=== PATIENT | female | born 1980 | race Caucasian/White ===

== ENCOUNTER 2017-03-22 09:28 | Outpatient (CLI) | payer OTHER ==
[2017-03-22 12:40] VITALS: BP 104/58
[2017-03-22] MEDS ORDERED: BUPIVACAINE 0.5%-EPI 1:200000 PF 10 ML VIAL SUBQ ONE (13:01)
[2017-03-22] MEDS ORDERED: BUFFERED LIDOCAINE 10 ML SYRINGE IU ONE (13:01)
--- NOTE | 2017-03-22 14:59 | Ultrasound Report ---
ULTRASOUND-GUIDED RIGHT BREAST BIOPSY: 03/22/2017 CLINICAL INDICATION: A 6 mm nodule at the 9:30 position of the right breast. FINDINGS: Informed consent was obtained. Using standard aseptic technique, both 1% buffered lidocain e and Sensorcaine were injected into the right breast for local anesthesia. A small gabriela was made in the skin with a #11 blade. A 12-gauge Celero vacuum-assisted device was used to obtain three specimen s. A Celero marker was placed into the biopsy cavity under ultrasound guidance. The patient was taken to a separate mammography machine, and a two view digital mammogram was performed, documenting the may er in the expected location and no significant postbiopsy hematoma. The wound was dressed and ice applied. The patient was observed for approximately 15 minutes, then wa s discharged from [facility] in good condition following instructions on wound care and obtai chrissy biopsy results. The tissue was sent for histologic analysis. IMPRESSION: ULTRASOUND-GUIDED BIOPSY OF THE RIGHT BREAST. AN ADDENDUM WILL BE MADE TO THIS REPORT WHEN PATHOLOGY IS REVIEWED TO ESTABLISH CONCORDANCE. JOB #: [id number] EXT JOB #:[id number]
--- NOTE | 2017-03-26 13:50 | Mammography Report ---
REVISED: THIS REPORT WAS ORIGINALLY SIGNED ON 03/22/2017 @ 1509. ORDERS LINKED ON 03/26/2017. EXAM: [id number] /[facility] ([id number]) ULTRASOUND-GUIDED RIGHT BREAST BIOPSY: 03/22/2017 CLINICAL INDICATION: A 6 mm nodule at the 9:30 position of the right breast. FINDINGS: Informed consent was obtained. Using standard aseptic technique, both 1% buffered lidocaine and Sensorcaine were injected into the right breast for local anesthesia. A small gabriela was made in the skin with a #11 blade. A 12- gauge Celero vacuum-assisted device was used to obtain three specimens. A Celero marker was placed into the biopsy cavity under ultrasound guidance. The patient was taken to a separate mammography machine, and a two view digital mammogram was performed, documenting the marker in the expected location and no significant postbiopsy hematoma. The wound was dressed and ice applied. The patient was observed for approximately 15 minutes, then was discharged from [facility] in good condition following instructions on wound care and obtaining biopsy results. The tissue was sent for histologic analysis. IMPRESSION: ULTRASOUND-GUIDED BIOPSY OF THE RIGHT BREAST. AN ADDENDUM WILL BE MADE TO THIS REPORT WHEN PATHOLOGY IS REVIEWED TO ESTABLISH CONCORDANCE. JOB #: [id number] EXT JOB #: [id number] Principal Technical Writer: Reading Radiologist: Yinka King MD Releasing Radiologist: Yinka King MD Released Date Time: 03/22/17 1509 <Electronically signed by Yinka King MD> cc: RUPERT BOX MD ADDENDUM ADDENDUM: Procedure performed by Dr. Yinka King. Pathology reviewed by Dr. Karla Romo. Final pathology results are benign (fibrocystic changes including sclerosing adenosis and stromal fibrosis, negative for in situ and invasive malignancy). These results are concordant with imaging findings. RECOMMENDATION: Six-month followup ultrasound. NOTE: Clinical followup for any persistent palpable abnormalities. Benign imaging should not dissuade further evaluation of any clinically suspicious changes. The patient has been instructed to obtain biopsy results from the ordering provider. Addendum Principal Technical Writer: ISAAK Addendum Reading Radiologist: Yinka King MD Addendum Releasing Radiologist: Yinka King MD Addendum Released Date Time: 03/25/17 0816 [facility]
== END 2017-03-22 09:29 | disposition home or self-care (01) ==
LOC: DI 09:28
PROVIDERS: ATTEND Family Medicine
DX: N60.21 Fibroadenosis of right breast (principal); N60.31 Fibrosclerosis of right breast
CPT/HCPCS: 19083

== ENCOUNTER 2017-07-20 08:00 | Outpatient (CLI) | payer OTHER | END 2017-07-20 08:01 | disposition home or self-care (01) | LOC: LAB.R 08:00 | PROVIDERS: ATTEND Podiatrist | DX: L03.032 Cellulitis of left toe (principal) | CPT/HCPCS: 87070; 87077; 87205 ==

== ENCOUNTER 2017-07-28 09:00 | Outpatient (CLI) | payer OTHER | END 2017-07-28 23:59 | LOC: LAB.R 09:00 | PROVIDERS: ATTEND Podiatrist | DX: T81.4XXA Infection following a procedure, initial encounter (principal); L03.031 Cellulitis of right toe | CPT/HCPCS: 87070; 87205 ==

== ENCOUNTER 2017-08-11 14:27 | Observation (INO) | payer OTHER ==
--- NOTE | 2017-08-11 15:03 | ED Physician Documentation ---
History of Present Illness - Stated complaint Stated Complaint: LT LEG REDNESS/SWELLING - Chief complaint Chief Complaint: Wound - Additonal information Additional information: hx from pt 36 f denies preg LMP 3 weeks ago and neg HCG a week ago had a toenail fungal infection had 4 nails removed developed infection has been on numerous oral ab including augmentin bactrim doxy and keflex and infection has worsened, now extending off toe and pain extending into foot no fever Review of Systems Constitutional: denies: Fever : denies: Now EGA Skin: reports: Rash Musculoskeletal: reports: Extremity pain PD PAST MEDICAL HISTORY - Past Surgical History HEENT: Tonsil/Adenoidectomy - Present Medications Home Medications: Ambulatory Orders Medication Instructions Recorded Confirmed No Known Home Medications [No 08/11/17 08/11/17 Known Home Medications] - Allergies Allergies/Adverse Reactions: Allergies Allergy/AdvReac Type Severity Reaction Status Date / Time itraconazole Allergy Unknown Verified 08/11/17 14:35 PD ED PE NORMAL - Vitals Vital signs reviewed: Yes - Cardiac Cardiac: RRR - Respiratory Respiratory: No respiratory distress, Clear bilaterally - Derm Derm: Other (R great toe nail removed and crusted nail bed, erythena and tenderness to entire great toe and extending onto the foot but not streaking any further) - Neuro Neuro: Alert and oriented X 3 Results - Vitals Vitals: Vital Signs - 24 hr 08/11/17 14:35 Temperature 36.6 C Heart Rate 100 Respiratory 16 Rate Blood Pressure 147/82 H O2 Saturation 100 Oxygen O2 Source Room air - Labs Labs: Laboratory Tests 08/11/17 08/11/17 14:50 14:50 WBC 6.3 RBC 4.27 Hgb 12.4 Hct 36.7 L MCV 85.8 MCH 29.0 MCHC 33.8 RDW 14.0 Plt Count 225 MPV 7.6 L Neut # 4.3 Lymph # 1.6 Power # 0.3 Eos # 0.1 Baso # 0.1 Absolute Nucleated RBC 0.00 Nucleated RBC % 0.0 Sodium 135 Potassium 3.6 Chloride 104 Carbon Dioxide 23 Anion Gap 8.0 BUN 11 Creatinine 0.7 Estimated GFR (MDRD) 96 Glucose 100 Calcium 9.1 - Rads (name of study) foot Radiology: See rad report PD MEDICAL DECISION MAKING - ED course ED course: toe cellultiis now grwoing numerous unusual bacteria but not MRSA - considered setting up home health IV ab infusion but unable to reach any providers at [facility] otday - MANAGING COGNITIVE ENGINEER states no answer calling numerous diff lines based on 07/28 cultures either bactrim or levaquin would cover all strains tested for sensitivities - levaquin is black box so gave IV bactrim Departure - Departure Disposition: ED Place in Observation Clinical Impression: Cellulitis Qualifiers: Site of cellulitis: extremity Site of cellulitis of extremity: lower extremity Laterality: left Qualified Code(s): L03.116 - Cellulitis of left lower limb Condition: Good Discharge Date/Time: 08/11/17 17:02
[2017-08-11 15:05] LABS: BASOPHILS # (AUTO) 0.1 10^3/uL (0.0-0.1); BASOPHILS % (AUTO) 1.1 %; EOSINOPHILS # (AUTO) 0.1 10^3/uL (0.0-0.7); EOSINOPHILS % (AUTO) 0.9 %; HGB - HEMOGLOBIN 12.4 g/dL (12.0-16.0); LYMPHOCYTES # (AUTO) 1.6 10^3/uL (1.5-3.5); LYMPHOCYTES % (AUTO) 24.9 %; MEAN CORPUSCULAR HGB CONC 33.8 g/dL (32.0-36.0); MEAN CORPUSCULAR VOLUME 85.8 fL (81.0-99.0); MEAN PLATELET VOLUME 7.6 fL (7.9-10.8); MONOCYTES # (AUTO) 0.3 10^3/uL (0.0-1.0); MONOCYTES % (AUTO) 5.3 %; NEUTROPHILS # (AUTO) 4.3 10^3/uL (1.5-6.6); NEUTROPHILS % (AUTO) 67.8 %; PLT - PLATELET COUNT 225 10^3/uL (130-450); RED BLOOD COUNT 4.27 10^6/uL (4.20-5.40); WHITE BLOOD COUNT 6.3 x10^3/uL (4.8-10.8)
[2017-08-11 15:09] LABS: CALCIUM 9.1 mg/dL (8.5-10.3); CREATININE 0.7 mg/dL (0.4-1.0)
[2017-08-11] MEDS ORDERED: VANCOMYCIN INJ 1 GM in SODIUM CHLORIDE 0.9% 250 ML IV STA (15:19)
[2017-08-11] MEDS ORDERED: PIPERACILLIN/TAZOBACTAM 3.375 GM in SODIUM CHLORIDE 0.9% MINIBAG 100 ML IV STA (15:19)
[2017-08-11] MEDS ORDERED: SMX/TMP 800MG/160MG 10ML 20 ML in DEXTROSE 5% 500 ML IV ONE (15:24)
--- NOTE | 2017-08-11 15:47 | XRAY Report ---
EXAM: TOE INFECTION. TOE RADIOGRAPHY EXAM DATE: 08/11/2017 03:32 PM. CLINICAL HISTORY: Infection wont clear eval osteo. COMPARISON: None. TECHNIQUE: 3 views. FINDINGS: Bones: No fracture or focal bony lesion. Joints: No evidence of dislocation. Soft Tissues: There is linear opacity suggestive of heterotopic ossification within the dorsal soft t issues of the distal first digit. IMPRESSION: 1. No fracture or dislocation. 2. Linear opacity within the dorsal soft tissues of the distal first digit is suggestive of heterotop ic ossification. [facility] Referring Provider Line: [phone] SITE ID: [id number]
[2017-08-11] MEDS ORDERED: ZOLPIDEM 5 MG TABLET PO PRN (16:36)
[2017-08-11] MEDS ORDERED: PROCHLORPERAZINE 10 MG/2 ML VIAL IVP PRN (16:36)
[2017-08-11] MEDS ORDERED: SODIUM CHLORIDE FLUSH 0.9% 10 ML SYRINGE IVP PRN (16:36)
[2017-08-11] MEDS ORDERED: HYDROcod/ACETAM 5/325 MG TABLET PO PRN (16:36)
[2017-08-11] MEDS ORDERED: SMX/TMP 800MG/160MG 10ML 20 ML in DEXTROSE 5% 500 ML IV SCH (17:00)
[2017-08-11] MEDS ORDERED: levoFLOXacin 750 MG/150 ML 750 MG/150 ML BAG IV SCH (18:00)
[2017-08-11] MEDS: IBUPROFEN 600 MG TABLET PO PRN (18:50)
[2017-08-11] MEDS: CIPROFLOXACIN 400 MG/200 ML 200 ML IV SCH (18:51)
[2017-08-11] MEDS: SODIUM CHLORIDE FLUSH 0.9% 10 ML SYRINGE IVP SCH (18:52)
[2017-08-12] MEDS: IBUPROFEN 600 MG TABLET PO PRN ×2 (01:37→07:44)
[2017-08-12 05:36] LABS: BASOPHILS # (AUTO) 0.1 10^3/uL (0.0-0.1); BASOPHILS % (AUTO) 0.9 %; EOSINOPHILS # (AUTO) 0.1 10^3/uL (0.0-0.7); EOSINOPHILS % (AUTO) 1.5 %; HGB - HEMOGLOBIN 11.8 g/dL (12.0-16.0); LYMPHOCYTES # (AUTO) 1.9 10^3/uL (1.5-3.5); LYMPHOCYTES % (AUTO) 30.7 %; MEAN CORPUSCULAR HEMOGLOBIN 28.6 pg (27.0-31.0); MEAN CORPUSCULAR VOLUME 86.6 fL (81.0-99.0); MEAN PLATELET VOLUME 7.3 fL (7.9-10.8); MONOCYTES # (AUTO) 0.4 10^3/uL (0.0-1.0); MONOCYTES % (AUTO) 6.1 %; NEUTROPHILS # (AUTO) 3.7 10^3/uL (1.5-6.6); NEUTROPHILS % (AUTO) 60.8 %; PLT - PLATELET COUNT 213 10^3/uL (130-450); RED BLOOD COUNT 4.14 10^6/uL (4.20-5.40); RED CELL DISTRIBUTION WIDTH 14.1 % (12.0-15.0); WHITE BLOOD COUNT 6.1 x10^3/uL (4.8-10.8)
[2017-08-12] MEDS: CIPROFLOXACIN 400 MG/200 ML 200 ML IV SCH (06:07)
[2017-08-12] MEDS: SODIUM CHLORIDE FLUSH 0.9% 10 ML SYRINGE IVP SCH (06:07)
[2017-08-12] MEDS ORDERED: FAMOTIDINE 20 MG TABLET PO SCH (09:00)
[2017-08-12] MEDS ORDERED: POLYETHYLENE GLYCOL 3350 17 GM PACKET PO SCH (09:00)
[2017-08-12] MEDS ORDERED: ENOXAPARIN 40 MG/0.4 ML SYRINGE SUBQ SCH (09:00)
--- NOTE | 2017-08-12 10:56 | HISTORY & PHYSICAL EXAMINATION ---
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 She has a history of a severe sprain to her left ankle for which she did need some intervention. She otherwise has a negati ve past medical history. The patient had a toe fungus that was treated by a powder monkey by removal of 4 toenails. These subseq uently got infected and she was started on empiric Augmentin, which she took for one week with no improvemen t. She then had cultures performed and her antibiotic was changed empirically to doxycycline, which she took for 3 days. The cultures showed that the bacteria were not sensitive to doxycycline, so she was changed to Keflex plus Bactrim, which she took for 3 days. There was another set of cultures done and the most recent bacteria that are grown are Kocuria kristinae, pantoea species, Stenotrophomonas maltophilia. The sensitivit ies to these bacteria have also been done, including their MICs. She was seen by both her powder monkey and in [facility] who noted that there was now spread of the infection up into her foot, and she was advised to come he re for IV antibiotics for failing oral antibiotics. She rates the pain in this area at about a 5/10 and states that Extra Strength Tylenol does relieve her symptoms that she takes at home. MEDICATIONS: Medications at home are only 1. The new Bactrim with Keflex 2. Tylenol p.r.n. ALLERGIES: ITRACONAZOLE. SOCIAL HISTORY: She is a nonsmoker, drinks social alcohol, uses no illicit drugs. Works as a nurse. FAMILY HISTORY: No inherited diseases. REVIEW OF SYSTEMS: There has been no fever through this course or chills. A comprehensive review of systems was performed and is negative, except for what is described above. PHYSICAL EXAMINATION: VITAL SIGNS: Blood pressure 128/80, heart rate 91, in sinus rhythm, afebrile, room air saturation 10 0%. HEENT: Unremarkable. NECK: No JVD or carotid bruits. LUNGS: Clear. HEART: Heart sounds normal. No murmur. ABDOMEN: Soft. Positive bowel sounds. EXTREMITIES: No clubbing, cyanosis or edema. The first 2 toes of both feet have very short toenails that are starting to grow in, and at the distal aspect of all 4, there is ecchymosis and brownish-red discolor ation. The left great toe is bandaged and has suppurative discharge. There is redness extending from all 4 of these toes up the anterior aspect of the foot, going intermediate up with no tenderness to touch. NEUROLOGIC: Grossly intact. LABORATORY DATA: Normal BMP. White blood count 6.3 with a normal differential, normal platelet count . A toe x-ray was done that showed no fracture or dislocation. Linear opacity within the dorsal soft ti ssues of the distal first digit is suggestive of heterotopic ossification. IMPRESSION/DIAGNOSES: Toe and foot cellulitis with multiple bacterial organisms growing on culture. Lack of response to oral antibiotics. PLAN: I have reviewed the MICs and sensitivities with the hospital pharmacist, and the choices to us e are either IV Bactrim, IV Levaquin, or IV Cipro, and IV Cipro will be dosed. The patient should have dec ision made regarding continued IV antibiotic treatment for a 7-10 day course or changed to p.o. antibiotics . This will depend on cultures that will be redone of the draining toe, taken before the initiation of Cipro . The patient is expected to be discharged or transferred to another facility within 96 hours: Yes. CODE STATUS: FULL CODE. DVT prophylaxis: Lovenox. TD: 08/11/2017 20:02
[2017-08-12 11:37] VITALS: BP 112/68
--- NOTE | 2017-08-12 11:45 | Discharge Plan ---
Discharge Plan Disposition: Home, Self Care Condition: Fair Prescriptions: Ciprofloxacin HCl [Cipro] 500 mg PO BID #14 tablet Diet: Regular Activity Restrictions: Activity as Tolerated (Avoid running or strenuous exercise x 1 week) Shower Restrictions: Yes (Wrap infected foot when showering) Weight Bearing: Full Weight Additional Instructions or Follow Up instructions: You presented with infection of your foot and were given a dose of antibiotic which seems to have helped. You will go home with oral ciprofloxacin for 7 days. You will need to follow up with your PCP and Progressive Care Manager after you complete treatment. No Smoking: If you smoke, Please STOP! Call for help. Follow-up with: RUPERT BOX [Primary Care Provider] -
--- NOTE | 2017-08-12 11:52 | DISCHARGE SUMMARY ---
Discharge Summary Admit Date: 08/11/17 Discharge Date: 08/12/17 Discharging Provider: Demarco Cheng MD Primary Care Provider: Austin Sierra MD Code Status: Attempt Resuscitation Condition at Discharge: Good Discharge Disposition: Home, Self Care - DIAGNOSES Admission Diagnoses: 1. Cellulitis Discharge Diagnoses with Status of Each Condition: 1. Cellulitis - HPI History of Present Illness: Patient is a 36-year-old female with no significant past medical history who has been dealing with fungal infection of her toe for the last year. She stated that she first developed the fungal infection after trauma to her toe when she was hiking. She then developed onychomycosis of 4 of her toenails on her left foot. She states that that was initially treated with an antifungal and then later with chemical treatment of her toes. About 3 weeks ago she began to develop drainage out of her big toe on her left foot. This was cultured and found to be staph she was started on antibiotics. She states that she has been on 4 different antibiotics including Bactrim, Keflex, Augmentin and amoxicillin. Despite the antibiotic treatment she continues to have drainage from the foot and was developing worsening erythema of the foot. She came into the emergency department and was placed on IV ciprofloxacin and admitted to the hospital. - HOSPITAL COURSE Hospital Course: The patient had significant improvement over one night in the hospital with IV ciprofloxacin. Given that IV ciprofloxacin has a same bioavailability as oral ciprofloxacin the patient was placed on ciprofloxacin p.o. to be taken as an outpatient. The patient will receive 7 days of p.o. antibiotics. We did go over with the patient the risks of Achilles tendon rupture with fluoroquinolones. Given that the ciprofloxacin covers bacteria that she grew on previous cultures of the foot we felt that this was the best choice. Also given that she had significant improvement with just 2 doses the patient felt comfortable continuing ciprofloxacin to treat her cellulitis. The patient was told to follow-up with her primary care physician and dampproofer once she has completed treatment. She will continue taking probiotic at home and NSAIDs for pain. - ALLERGIES Allergies/Adverse Reactions: Allergies Allergy/AdvReac Type Severity Reaction Status Date / Time itraconazole Allergy Unknown Verified 08/11/17 14:35 - MEDICATIONS Home Medications: Ambulatory Orders Medication Instructions Recorded Confirmed Ciprofloxacin HCl [Cipro] 500 mg PO BID #14 tablet 08/12/17 - PHYSICAL EXAM AT DISCHARGE General Appearance: positive: No acute distress, Alert Eyes Bilateral: positive: Normal inspection, PERRL, EOMI, No lid inflammation, Conjunctivae nml, No scleral icterus ENT: positive: ENT inspection nml, Pharynx nml, No signs of dehydration. negative: Purulent nasal drainage, Pharyngeal erythema, Oral lesions Neck: positive: Nml inspection, Thyroid nml, No JVD, Trachea midline Respiratory: positive: Chest non-tender, No respiratory distress, Breath sounds nml. negative: Wheezes, Rales, Rhonchi Cardiovascular: positive: Regular rate & rhythm, No murmur, No gallop Peripheral Pulses: positive: 2+ Abdomen: positive: Non-tender, No organomegaly, Nml bowel sounds, No distention. negative: Guarding, Rebound, Hepatomegaly Back: positive: Nml inspection. negative: CVA tenderness (R), CVA tenderness (L ) Skin: positive: Other (Left foot erythema around 4 toes. Mild drainage from the left big toe. Mild erythema on the foot.) Extremities: positive: Non-tender, Full ROM, No pedal edema. negative: Joint swelling Neurologic/Psychiatric: positive: Oriented x3, CN's nml (2-12), Motor nml, Sensation nml, Mood/affect nml - LABS Result Diagrams: 08/12/17 05:24 08/11/17 14:50 - DIAGNOSTIC IMAGING Diagnostic Imaging Results: Final report reviewed Diagnostic Imaging Results Comments: X-ray left foot Impression: 1. No fracture dislocation 2. Annular opacity within the dorsal soft tissue of the distal first digit is suggestive of hypertrophic ossification - FOLLOW UP Follow Up: Patient will follow up with her primary care physician and dampproofer when she is completed 7 days of oral antibiotics for treatment of cellulitis of her left foot. - TIME SPENT Time Spent in Discharge (Minutes): 35 (FAX TO PCP)
== END 2017-08-12 12:36 | disposition home or self-care (01) ==
LOC: ED 14:27 → OBS 16:36
PROVIDERS: ADMIT Internal Medicine; ATTEND Internal Medicine
DX: L03.032 Cellulitis of left toe (principal); L03.116 Cellulitis of left lower limb; B95.8 Unspecified staphylococcus as the cause of diseases classified elsewhere; B96.89 Other specified bacterial agents as the cause of diseases classified elsewhere; B35.1 Tinea unguium; Z16.29 Resistance to other single specified antibiotic
CPT/HCPCS: 36415; 73660; 80048; 85025; 87070; 87205; 96365; 96366; 99283; A9270; G0378

== ENCOUNTER 2017-08-14 07:10 | Inpatient (IN) | payer OTHER ==
[2017-08-14] MEDS ORDERED: CIPROFLOXACIN 400 MG/200 ML 200 ML IV ONE (08:20)
--- NOTE | 2017-08-14 08:24 | ED Physician Documentation ---
History of Present Illness - Stated complaint Stated Complaint: LEFT TOE PX - Chief complaint Chief Complaint: Ext Problem - History obtained from History obtained from: Patient - History of Present Illness Timing: How many weeks ago (3) - Additonal information Additional information: 36-year-old female has had her right and left great toenails removed for onychomycoses and she has developed an infection in the bed of the right toenail that has been resistant to multiple courses of oral antibiotic. She was placed in the hospital and within 1 day of beginning intravenous ciprofloxacin patient had a marked recovery of her symptoms. She had cellulitis over the dorsum of the foot this is all completely resolved. She went home took 3 doses of her oral Cipro over the last 2 days and she has had recurrence of her symptoms, they are not as bad as when she was admitted into the hospital. She has erythema and pain to the dorsum of the right great toe. This all started with toes that were injured from hiking and developed some dark color to the toes about 2 years ago. She subsequently developed onchomycosis and this was not amenable to anti-fungals and she requires nail removal. Review of Systems Constitutional: reports: Myalgias. denies: Fever, Chills Eyes: denies: Decreased vision Ears: denies: Ear pain Nose: denies: Congestion Throat: denies: Dental pain / toothache Respiratory: denies: Cough GI: denies: Vomiting Skin: denies: Rash Musculoskeletal: reports: Extremity pain. denies: Neck pain, Back pain Neurologic: denies: Generalized weakness, Focal weakness, Numbness PD PAST MEDICAL HISTORY - Past Medical History Past Medical History: Yes Cardiovascular: None Respiratory: None Neuro: None Endocrine/Autoimmune: None GI: None : Kidney stones HEENT: None Psych: None Musculoskeletal: None Derm: None - Past Surgical History Past Surgical History: Yes HEENT: Tonsil/Adenoidectomy - Present Medications Home Medications: Ambulatory Orders Medication Instructions Recorded Confirmed Ciprofloxacin HCl [Cipro] 500 mg PO BID #14 tablet 08/12/17 08/14/17 - Allergies Allergies/Adverse Reactions: Allergies Allergy/AdvReac Type Severity Reaction Status Date / Time itraconazole Allergy Unknown Verified 08/11/17 14:35 - Social History Does the pt smoke?: No Smoking Status: Never smoker Does the pt drink ETOH?: No Does the pt have substance abuse?: No - Immunizations Immunizations are current?: Yes - POLST Patient has POLST: No PD ED PE NORMAL - Vitals Vital signs reviewed: Yes (normal ) - General General: Alert and oriented X 3, No acute distress, Well developed/nourished - HEENT HEENT: Atraumatic, PERRL, EOMI - Cardiac Cardiac: RRR - Respiratory Respiratory: No respiratory distress - Derm Derm: Normal color, Warm and dry, No rash - Extremities Extremities: No deformity, No edema, Other (There is mild erythema to the dorsum of the left great toe distally. There is tenderness but no drainage and no deformity. The nails to the 1st and 2nd toes have been removed previously and there is no new nail growth. ) Results - Vitals Vitals: Vital Signs - 24 hr 08/14/17 08/14/17 08/14/17 07:14 10:46 10:51 Temperature 36.6 C 36.8 C Heart Rate 97 98 93 Respiratory 18 16 12 Rate Blood Pressure 119/74 103/65 105/66 O2 Saturation 100 100 100 Oxygen O2 Source Room air - Labs Labs: Laboratory Tests 08/14/17 08/14/17 08/14/17 08:40 08:40 08:40 WBC 6.1 RBC 4.60 Hgb 13.2 Hct 39.4 MCV 85.7 MCH 28.8 MCHC 33.6 RDW 13.7 Plt Count 239 MPV 7.4 L Neut # 4.0 Lymph # 1.7 Elmore # 0.3 Eos # 0.1 Baso # 0.1 Absolute Nucleated RBC 0.00 Nucleated RBC % 0.0 ESR 5 Sodium 137 Potassium 3.7 Chloride 104 Carbon Dioxide 24 Anion Gap 9.0 BUN 12 Creatinine 0.7 Estimated GFR (MDRD) 96 Glucose 93 Calcium 9.1 Total Bilirubin 0.4 AST 24 ALT 17 Alkaline Phosphatase 43 C-Reactive Protein < 1.0 Total Protein 7.6 Albumin 4.5 Globulin 3.1 Albumin/Globulin Ratio 1.5 Lipase 28 PD MEDICAL DECISION MAKING - ED course Complexity details: reviewed old records, reviewed results, re-evaluated patient , considered differential, d/w patient, d/w family, d/w wine consultant (Dr. Cheng) ED course: 36-year-old female with a history ofInjury to the toes has developed a resistant infection. She had some improvement with intravenous Cipro while in the hospital and on oral Cipro this is failed. She is return to the emergency department with increasing symptoms. She has normal white blood cell count and electrolytes and her exam is not remarkable. She has been fighting this infection for 3 weeks with multiple courses of antibiotic. She has had some initial improvement 3 times and followed by worsening. Her tree pruner Steffi Martinez was consulted by telephone and recommended continued IV antibiotic. She has been frustrated with the multiple courses failing as outpatient. Dr. Cheng is consulted in the case and will admit the patient for failed outpatient management. Departure - Departure Disposition: ED Place in Observation Clinical Impression: Cellulitis Qualifiers: Site of cellulitis: extremity Site of cellulitis of extremity: toe Laterality: right Qualified Code(s): L03.031 - Cellulitis of right toe Condition: Stable Follow-Up: RUPERT BOX [Primary Care Provider] - Prescriptions: Clindamycin HCl [Clindamycin 300MG CAP] 300 mg PO QID #28 capsule
[2017-08-14 08:49] LABS: BASOPHILS # (AUTO) 0.1 10^3/uL (0.0-0.1); BASOPHILS % (AUTO) 0.9 %; EOSINOPHILS # (AUTO) 0.1 10^3/uL (0.0-0.7); EOSINOPHILS % (AUTO) 1.1 %; HGB - HEMOGLOBIN 13.2 g/dL (12.0-16.0); LYMPHOCYTES # (AUTO) 1.7 10^3/uL (1.5-3.5); MEAN CORPUSCULAR HEMOGLOBIN 28.8 pg (27.0-31.0); MEAN CORPUSCULAR HGB CONC 33.6 g/dL (32.0-36.0); MEAN CORPUSCULAR VOLUME 85.7 fL (81.0-99.0); MEAN PLATELET VOLUME 7.4 fL (7.9-10.8); MONOCYTES # (AUTO) 0.3 10^3/uL (0.0-1.0); MONOCYTES % (AUTO) 4.5 %; NEUTROPHILS % (AUTO) 65.5 %; PLT - PLATELET COUNT 239 10^3/uL (130-450); RED CELL DISTRIBUTION WIDTH 13.7 % (12.0-15.0); WHITE BLOOD COUNT 6.1 x10^3/uL (4.8-10.8)
[2017-08-14 09:05] LABS: ALBUMIN 4.5 g/dL (3.2-5.5); ALBUMIN/GLOBULIN RATIO 1.5 (1.0-2.2); ALKALINE PHOSPHATASE 43 IU/L (42-121); ALT ALANINE AMINOTRANSFERASE 17 IU/L (10-60); AST ASPARTATE AMINOTRANSFERASE 24 IU/L (10-42); BILIRUBIN,TOTAL 0.4 mg/dL (0.2-1.0); BUN - BLOOD UREA NITROGEN 12 mg/dL (6-20); CALCIUM 9.1 mg/dL (8.5-10.3); CARBON DIOXIDE - CO2 24 mmol/L (21-32); CHLORIDE 104 mmol/L (101-111); CREATININE 0.7 mg/dL (0.4-1.0); GFR - MDRD 96 (>89); GLUCOSE 93 mg/dL (70-100); LIPASE 28 U/L (22-51); SODIUM 137 mmol/L (135-145); TOTAL PROTEIN 7.6 g/dL (6.7-8.2)
[2017-08-14 09:30] LABS: CRP - C-REACTIVE PROTEIN < 1.0 mg/dL (0-1.0)
[2017-08-14] MEDS ORDERED: ZOLPIDEM 5 MG TABLET PO PRN (11:40)
[2017-08-14] MEDS ORDERED: oxyCODONE 5 MG TABLET PO PRN (11:40)
[2017-08-14] MEDS ORDERED: ONDANSETRON 4 MG/2 ML VIAL IVP PRN (11:40)
[2017-08-14] MEDS ORDERED: PROCHLORPERAZINE 10 MG/2 ML VIAL IVP PRN (11:40)
[2017-08-14] MEDS ORDERED: VANCOMYCIN PER PHARMACY 1 GM in SODIUM CHLORIDE 0.9% 250 ML IV SCH (12:00)
[2017-08-14] MEDS ORDERED: cefTRIAXone 1 GM in SODIUM CHLORIDE 0.9% MINIBAG 100 ML IV SCH (13:00)
[2017-08-14] MEDS ORDERED: SODIUM CHLORIDE 0.9% 250 ML IV ONE (13:43)
[2017-08-14] MEDS: SODIUM CHLORIDE FLUSH 0.9% 10 ML SYRINGE IVP SCH ×2 (13:47→19:01)
[2017-08-14] MEDS ORDERED: VANCOMYCIN 1.5 GM/NS 500 ML 1.5 GM/500 ML BAG IV ONE (14:00)
--- NOTE | 2017-08-14 16:10 | ED Physician Documentation ---
ED Addendum - Addendum Addendum: 08/14/17 16:09 unscheduled return visit chart accessed for follow up and educational purposes
[2017-08-14] MEDS: SACCHAROMYCES BOULARDII 250 MG CAPSULE PO SCH (16:15)
[2017-08-14] MEDS: ACETAMINOPHEN 325 MG TABLET PO PRN (16:16)
--- NOTE | 2017-08-14 17:39 | HISTORY & PHYSICAL EXAMINATION ---
Chief Complaint - Chief Complaint Chief Complaint: Left foot erythema and drainage History of Present Illness - Admitted From Admitted From:: Emergency department - History Obtained From Records Reviewed: Yes History obtained from: Patient Exam Limitations: None - History of Present Illness HPI Comment/Other: Patient is a healthy young 36-year-old female who was just recently hospitalized here at [facility] for a cellulitis of her left foot. She has been dealing with issues to her left foot now for nearly 2 years. She states that she initially had an injury to her left big toe while she was hiking. She states from that injury she developed a fungal infection of 4 of her toenails. She had that treated with antifungal for 6 months which seemed to resolve the infection however she had recurrence of the fungal infection and was placed on another antifungal to which she had a reaction and had to stop. The patient was then referred to a communications technician who removed the infected nails and this seemed to resolve her fungal infection. The patient however then developed drainage from her left big toe and developed cellulitis of the left foot. The patient has since been on multiple antibiotics including Augmentin which she took for 1 week but she had no improvement with. Doxycycline which she took for 3 days but but then was changed over to Keflex and Bactrim due to her culture sensitivity. The patient still had no improvement. Her cultures from her left foot have grown multiple different organisms including kocuria jalen, pantoea species, stenotromonas maltophilia. The patient has been seen by both a communications technician and an quality control lab tech who have noted that her infection who noted last week that her infection spread up into her foot and advised her to go to the emergency room for IV antibiotics. The patient was placed on IV ciprofloxacin and seemed to have a very good response over 24 hours. Given that ciprofloxacin has the same bioavailability whether taken IV or p.o. the patient was sent home on p.o. ciprofloxacin however over the last couple of days she has noticed increased drainage from the big toe on her left foot and increasing erythema in both her first and second toe. She also states that she is felt warm and had checked her temperature which was up to 99.1 which she states is high for her. She was concerned that the infection was beginning to spread again and therefore came back to the emergency department today. The patient denies any headaches, blurred vision, runny nose, sore throat, nasal congestion, difficulty swallowing, neck pain, chest pain, shortness of air , orthopnea, PND, abdominal pain, nausea, vomiting, diarrhea, constipation, back pain, joint pain, neck stiffness, recent unintentional weight loss, changes in her appetite or any focal neurologic deficits. On presentation to the emergency department the patient was afebrile she was slightly tachycardic with heart rate of 97 blood pressure was stable and she was not in any respiratory distress. The patient's lab work was all within normal limits including a C-reactive protein of less than 1 and an ESR of 5. The patient had had undergone imaging of her left foot during the previous admission which had shown linear opacity within the dorsal soft tissue of the distal first digit suggestive of hypertrophic ossification but there was no evidence of osteo-. Imaging was not repeated in the ER at this time. Given that the patient was not responding well to the oral antibiotics she was admitted again to the medical trivedi for IV antibiotics. History - Past Medical History Cardiovascular: reports: None, Murmur Respiratory: reports: None Neuro: reports: None Endocrine/Autoimmune: reports: None GI: reports: None : reports: Kidney stones HEENT: reports: None Psych: reports: None Musculoskeletal: reports: None Derm: reports: None MRSA Hx?: No Other Past Medical History: resolved heart murmur, fibrocystic breast disease - Past Surgical History HEENT: reports: Tonsil/Adenoidectomy - Family & Social History Family History: Mother: Cancer (Breast cancer), Diabetes, Type 2, Father: Diabetes, Type 2, Sister: Cancer, Other family: CAD (Maternal grandmother) Family History Comment/Other: Mom has Deanna's thyroiditis Living arrangement: At home Living Situation: With family Social History Notes: The patient is originally from [place], [place] and is a graduate of the [employer] where she did a degree in microbiology and 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 She is to a gentleman from the [employer] and was recently living in [place], [place] but moved to [facility] just 6 months ago. 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 She has never smoked she rarely drinks alcohol and she denies any illicit drug use. - POLST Patient has POLST: No POLST Status: Full Code Meds/Allgy - Home Medications Home Medications: Ambulatory Orders Medication Instructions Recorded Confirmed Ciprofloxacin HCl [Cipro] 500 mg PO BID #14 tablet 08/12/17 08/14/17 - Allergies Allergies/Adverse Reactions: Allergies Allergy/AdvReac Type Severity Reaction Status Date / Time itraconazole Allergy Unknown Verified 08/11/17 14:35 Review of Systems - Other Findings Other Findings: A comprehensive review of systems was performed the pertinent positives and negatives are stated above in the HPI and the remainder of the review of systems is negative. Exam - Vital Signs Reviewed Vital Signs: Yes Vital Signs: Vital Signs x48h Temp Pulse Resp BP Pulse Ox 08/14/17 16:04 36.7 C 95 18 113/65 100 08/14/17 12:16 36.9 C 91 18 115/68 100 - Physical Exam General Appearance: positive: No acute distress, Alert Eyes Bilateral: positive: Normal inspection, PERRL, EOMI, No lid inflammation, Conjunctivae nml, No scleral icterus ENT: positive: ENT inspection nml, Pharynx nml, No signs of dehydration. negative: Purulent nasal drainage, Pharyngeal erythema, Oral lesions Neck: positive: Nml inspection, Thyroid nml, No JVD, Trachea midline. negative : Thyromegaly, Lymphadenopathy (R), Lymphadenopathy (L) Respiratory: positive: Chest non-tender, No respiratory distress, Breath sounds nml. negative: Wheezes, Rales, Rhonchi Cardiovascular: positive: Regular rate & rhythm, No murmur, No gallop Peripheral Pulses: positive: 2+ Abdomen: positive: Non-tender, No organomegaly, Nml bowel sounds, No distention. negative: Guarding, Rebound, Hepatomegaly Back: positive: Nml inspection. negative: CVA tenderness (R), CVA tenderness (L ) Skin: positive: Other (Patient has erythema and swelling of her first and second left toe. There is some mild drainage from the left big toe. There appears to be a small blister on the surface of the anterior aspect of the dorsal aspect of the greater left toe. There is warmth to touch on her first and second toe but no tenderness.) Extremities: positive: Non-tender, Full ROM, Nml appearance, No pedal edema Neurologic/Psychiatric: positive: Oriented x3, CN's nml (2-12), Motor nml, Sensation nml, Mood/affect nml Conclusion/Plan - Problem List (1) Cellulitis of left toe Conclusion/Plan: The patient has had persistent cellulitis of her left foot specifically the first and second toe for over a month. Prior to that she had issues with onychomycosis of her toes on the left foot which persisted for over a year. The patient has had multiple wound cultures that have grown out multiple different organisms. The patient has been on numerous antibiotics but does not appear to respond for any prolonged period of time. Most recently the patient was hospitalized and placed on IV Cipro and seemed to respond but when switched to oral Cipro the patient's infection has worsened and cellulitis has returned. The patient is now being hospitalized again to be placed on IV antibiotics and we will consider placing her on home infusion IV antibiotics. Plan: Looking through the patient's previous cultures the organisms which the patient has grown would be susceptible to vancomycin and ceftriaxone therefore we will start these medications IV as they will be easier to transition home with as they are once a day medications. We will continue to monitor the patient's CBC We will consult case management for home infusion IV antibiotics. - Lab Results Lab results reviewed: Yes Fish Bones: 08/14/17 08:40 08/14/17 08:40 Other Lab Results: Laboratory Results WBC 6.1 x10^3/uL (4.8-10.8) 08/14/17 08:40 RBC 4.60 10^6/uL (4.20-5.40) 08/14/17 08:40 Hgb 13.2 g/dL (12.0-16.0) 08/14/17 08:40 Hct 39.4 % (37.0-47.0) 08/14/17 08:40 MCV 85.7 fL (81.0-99.0) 08/14/17 08:40 MCH 28.8 pg (27.0-31.0) 08/14/17 08:40 MCHC 33.6 g/dL (32.0-36.0) 08/14/17 08:40 RDW 13.7 % (12.0-15.0) 08/14/17 08:40 Plt Count 239 10^3/uL (130-450) 08/14/17 08:40 MPV 7.4 fL (7.9-10.8) L 08/14/17 08:40 Neut # 4.0 10^3/uL (1.5-6.6) 08/14/17 08:40 Lymph # 1.7 10^3/uL (1.5-3.5) 08/14/17 08:40 [place] # 0.3 10^3/uL (0.0-1.0) 08/14/17 08:40 Eos # 0.1 10^3/uL (0.0-0.7) 08/14/17 08:40 Baso # 0.1 10^3/uL (0.0-0.1) 08/14/17 08:40 Absolute Nucleated RBC 0.00 x10^3/uL 08/14/17 08:40 Nucleated RBC % 0.0 /100WBC 08/14/17 08:40 ESR 5 mm/Hr (0-20) 08/14/17 08:40 Sodium 137 mmol/L (135-145) 08/14/17 08:40 Potassium 3.7 mmol/L (3.5-5.0) 08/14/17 08:40 Chloride 104 mmol/L (101-111) 08/14/17 08:40 Carbon Dioxide 24 mmol/L (21-32) 08/14/17 08:40 Anion Gap 9.0 (6-13) 08/14/17 08:40 BUN 12 mg/dL (6-20) 08/14/17 08:40 Creatinine 0.7 mg/dL (0.4-1.0) 08/14/17 08:40 Estimated GFR (MDRD) 96 (>89) 08/14/17 08:40 Glucose 93 mg/dL (70-100) 08/14/17 08:40 Calcium 9.1 mg/dL (8.5-10.3) 08/14/17 08:40 Total Bilirubin 0.4 mg/dL (0.2-1.0) 08/14/17 08:40 AST 24 IU/L (10-42) 08/14/17 08:40 ALT 17 IU/L (10-60) 08/14/17 08:40 Alkaline Phosphatase 43 IU/L (42-121) 08/14/17 08:40 C-Reactive Protein < 1.0 mg/dL (0-1.0) 08/14/17 08:40 Total Protein 7.6 g/dL (6.7-8.2) 08/14/17 08:40 Albumin 4.5 g/dL (3.2-5.5) 08/14/17 08:40 Globulin 3.1 g/dL (2.1-4.2) 08/14/17 08:40 Albumin/Globulin Ratio 1.5 (1.0-2.2) 08/14/17 08:40 Lipase 28 U/L (22-51) 08/14/17 08:40 - Diagnostic Imaging Results Diagnostic Imaging Results: positive: Final report reviewed Diagnostic Imaging Results Comments: X-ray left toe 08/11/2017 Impression: 1. No fracture or dislocation 2. Linear opacity within the dorsal soft tissue of the distal first digit is suggestive of heterotrophic ossification. Core Measures - Anticipated LOS I expect patient to be DC'd or transferred within 96 hours.: Yes - DVT/VTE - Prophylaxis VTE/DVT Prophylaxis med ordered at admit?: Yes
[2017-08-14] MEDS: CIPROFLOXACIN 400 MG/200 ML 200 ML IV SCH (19:00)
[2017-08-14] MEDS ORDERED: VANCOMYCIN INJ 1 GM in SODIUM CHLORIDE 0.9% 250 ML IV SCH (22:00)
[2017-08-15 05:06] LABS: BASOPHILS # (AUTO) 0.1 10^3/uL (0.0-0.1); EOSINOPHILS # (AUTO) 0.1 10^3/uL (0.0-0.7); EOSINOPHILS % (AUTO) 2.4 %; HGB - HEMOGLOBIN 11.7 g/dL (12.0-16.0); LYMPHOCYTES # (AUTO) 1.7 10^3/uL (1.5-3.5); LYMPHOCYTES % (AUTO) 29.8 %; MEAN CORPUSCULAR HGB CONC 33.4 g/dL (32.0-36.0); MEAN CORPUSCULAR VOLUME 86.8 fL (81.0-99.0); MEAN PLATELET VOLUME 7.4 fL (7.9-10.8); MONOCYTES # (AUTO) 0.3 10^3/uL (0.0-1.0); MONOCYTES % (AUTO) 6.1 %; NEUTROPHILS # (AUTO) 3.4 10^3/uL (1.5-6.6); NEUTROPHILS % (AUTO) 59.7 %; PLT - PLATELET COUNT 202 10^3/uL (130-450); RED BLOOD COUNT 4.04 10^6/uL (4.20-5.40); RED CELL DISTRIBUTION WIDTH 13.8 % (12.0-15.0); WHITE BLOOD COUNT 5.7 x10^3/uL (4.8-10.8)
[2017-08-15] MEDS: ACETAMINOPHEN 325 MG TABLET PO PRN ×3 (05:14→19:20)
[2017-08-15] MEDS: SODIUM CHLORIDE FLUSH 0.9% 10 ML SYRINGE IVP SCH ×3 (05:14→13:39)
[2017-08-15 05:33] LABS: ALBUMIN 3.6 g/dL (3.2-5.5); ALBUMIN/GLOBULIN RATIO 1.3 (1.0-2.2); BILIRUBIN,TOTAL 0.6 mg/dL (0.2-1.0); CALCIUM 8.4 mg/dL (8.5-10.3); CREATININE 0.6 mg/dL (0.4-1.0); MAGNESIUM 1.9 mg/dL (1.7-2.8); PHOSPHORUS 3.6 mg/dL (2.5-4.6); TOTAL PROTEIN 6.3 g/dL (6.7-8.2)
[2017-08-15] MEDS ORDERED: LORazepam 0.5 MG TABLET PO PRN (06:35)
[2017-08-15] MEDS: predniSONE 20 MG TABLET PO SCH (07:20)
[2017-08-15] MEDS ORDERED: SODIUM CHLORIDE 0.9% 250 ML IV ONE (08:19)
[2017-08-15] MEDS: POLYETHYLENE GLYCOL 3350 17 GM PACKET PO SCH (08:20)
[2017-08-15] MEDS: DOXYCYCLINE INJ 100 MG in SODIUM CHLORIDE 0.9% MINIBAG 100 ML IV SCH ×3 (08:20→21:09)
[2017-08-15] MEDS: FAMOTIDINE 20 MG TABLET PO SCH (08:22)
[2017-08-15] MEDS: SACCHAROMYCES BOULARDII 250 MG CAPSULE PO SCH ×2 (08:22→17:11)
[2017-08-15] MEDS: ENOXAPARIN 40 MG/0.4 ML SYRINGE SUBQ SCH (08:23)
[2017-08-15] MEDS: CIPROFLOXACIN 400 MG/200 ML 200 ML IV SCH (10:05)
[2017-08-15] MEDS: SULFAMETH/TRIMETH DS 800/160 MG TABLET PO SCH ×2 (11:22→21:10)
--- NOTE | 2017-08-15 13:20 | XRAY Report ---
EXAM: CHEST RADIOGRAPHY EXAM DATE: 08/15/2017 01:01 PM. CLINICAL HISTORY: PICC line right basilic vein. COMPARISON: None. TECHNIQUE: 1 view. FINDINGS: Lungs/Pleura: No focal opacities evident. No pleural effusion. No pneumothorax. Mediastinum: There is a right upper extremity PICC line with tip at the mid to lower SVC. Heart size is normal. Other: None. IMPRESSION: PICC line tip at mid to lower SVC. CRISELDA Referring Provider Line: [phone] SITE ID: [id number]
--- NOTE | 2017-08-15 16:17 | PROVIDER PROGRESS NOTE ---
Assessment/Plan - Problem List (1) Cellulitis of left toe Assessment/Plan: Patient has had persistent cellulitis of her left big toe. It has been going on for nearly a month now and she has been through multiple antibiotic regimens without resolution. The patient has grown multiple organisms on cultures of her left big toe drainage. She has grown organisms including Staphylococcus Lugdunensis, pantoea spp, coagulase negative staph, stenotorphomonas maltophilia , pantoea spp and kocuria kristinae. Most recently she was hospitalized and placed on IV Cipro with which she seemed to be having good response and was discharged home on p.o. Cipro. The patient returned to the emergency department because her cellulitis was worsening and she was having increased drainage from the left big toe. Yesterday patient was placed on vancomycin and ceftriaxone IV but seem to have an allergic reaction when she was placed on these medications. Therefore the vancomycin was stopped and she was placed back on IV ciprofloxacin. This morning the patient is having numbness in her bilateral lower extremities and feels as though she cannot lift her legs. The patient states that these symptoms were there over the last few days while she was on oral Cipro. We believe that this could be a side effect of the Cipro. This morning we will switch the patient to IV doxycycline and p.o. Bactrim to treat her cellulitis. The patient's cellulitis is looking better today. I have ordered a PICC line for the patient. Which will be placed today. Case management will set up home IV antibiotic infusion for the patient. Patient will likely be able to be discharged tomorrow as long as she is improving. - Current Meds Current Meds: Current Medications Generic Name Dose Route Start Last Admin Trade Name Freq PRN Reason Stop Dose Admin Acetaminophen 650 mg 08/14/17 11:40 08/15/17 14:04 Tylenol PO 650 mg Q4HR PRN Administration Pain 1 to 4 Enoxaparin Sodium 40 mg 08/15/17 09:00 08/15/17 08:23 Lovenox SUBQ 40 mg DAILY NATHEN Administration Famotidine 20 mg 08/15/17 09:00 08/15/17 08:22 Pepcid PO 20 mg DAILY NATHEN Administration Doxycycline Hyclate 100 mg/ 100 mls @ 100 mls/hr 08/15/17 07:00 08/15/17 14: 35 Sodium Chloride IV Infused BID NATHEN Infusion Lorazepam 0.5 mg 08/15/17 06:35 08/15/17 07:13 Ativan PO 0.5 mg Q6H PRN Administration Anxiety Polyethylene Glycol 17 gm 08/15/17 09:00 08/15/17 08:20 Miralax PO Not Given DAILY NATHEN Prednisone 60 mg 08/15/17 06:55 08/15/17 07:20 Deltasone PO 60 mg DAILYWM NATHEN Administration Saccharomyces Boulardii 500 mg 08/14/17 17:00 08/15/17 08:22 Florastor PO 500 mg BIDWM NATHEN Administration Sodium Chloride 10 ml 08/14/17 14:00 08/15/17 13:39 Normal Saline Flush 0.9% IVP 10 ml Q8HR NATHEN Administration Trimethoprim/Sulfamethoxazole 1 tab 08/15/17 11:00 08/15/17 11:22 Bactrim Ds 800/160 PO 1 tab BID NATHEN Administration - Lab Result Lab results reviewed: Yes Fish Bone Diagrams: 08/15/17 04:58 08/15/17 04:58 - Diagnostic Imaging Results Diagnostic Imaging Results: Final report reviewed - Additional Planning Condition/Complexity: Stable My Orders: My Active Orders 08/15/17 10:47 PICC Line Care [RC] Q4H 08/15/17 11:00 Sulfamethox/Trimeth 800/160 [Bactrim Ds 800/160] 1 tab PO BID Plan Discussed with:: Patient Time Spent: 31-60 minutes Subjective - Subjective Patient Reports: Resting Comfortably, Other (Complaining of bilateral lower extremity numbness and heaviness in her legs.) Nursing Reports: No Complaints Objective Vital Signs: Vital Signs - 24 hr 08/15/17 08/15/17 08/15/17 00:30 06:12 15:24 Temperature 36.7 C 36.5 C 37.4 C Heart Rate [ 83 82 101 H Brachial] Respiratory 18 16 18 Rate Blood Pressure 107/54 L 104/74 105/56 L [Right Brachial artery] O2 Saturation 98 100 Oxygen O2 Source Room air I&O (Last 24 Hrs): Intake and Output Totals x24h 08/13/17 08/14/17 08/15/17 23:59 23:59 23:59 Intake Total 1634 2030.000 Balance 1634 2030.000 General: Alert, Oriented x3, Cooperative, No acute distress HEENT: Atraumatic, PERRLA, EOMI, Mucous membr. moist/pink Neck: Supple, No JVD, No thyromegaly, +2 carotid pulse wo bruit, No LAD Lymphatic: no adenopathy Neuro: Alert, Non Focal, CN 2-12 Grossly Intact, Oriented Times 3 Cardiovascular: Regular rate, Normal S1, Normal S2, No murmurs Respiratory: Chest non-tender, No respiratory distress, Breath sounds nml Abdomen: Normal bowel sounds, Soft, No tenderness, No hepatospenomegaly Extremities: No clubbing, No cyanosis, No edema, Normal pulses, Other (Left big toe with opening in bed of nail with mild drainage and surround erythema) Comments/Notes: Erythema of the 1st and 2nd toe of the left foot - Results Results: Laboratory Results WBC 5.7 x10^3/uL (4.8-10.8) 08/15/17 04:58 RBC 4.04 10^6/uL (4.20-5.40) L 08/15/17 04:58 Hgb 11.7 g/dL (12.0-16.0) L 08/15/17 04:58 Hct 35.1 % (37.0-47.0) L 08/15/17 04:58 MCV 86.8 fL (81.0-99.0) 08/15/17 04:58 MCH 29.0 pg (27.0-31.0) 08/15/17 04:58 MCHC 33.4 g/dL (32.0-36.0) 08/15/17 04:58 RDW 13.8 % (12.0-15.0) 08/15/17 04:58 Plt Count 202 10^3/uL (130-450) 08/15/17 04:58 MPV 7.4 fL (7.9-10.8) L 08/15/17 04:58 Neut # 3.4 10^3/uL (1.5-6.6) 08/15/17 04:58 Lymph # 1.7 10^3/uL (1.5-3.5) 08/15/17 04:58 [place] # 0.3 10^3/uL (0.0-1.0) 08/15/17 04:58 Eos # 0.1 10^3/uL (0.0-0.7) 08/15/17 04:58 Baso # 0.1 10^3/uL (0.0-0.1) 08/15/17 04:58 Absolute Nucleated RBC 0.00 x10^3/uL 08/15/17 04:58 Nucleated RBC % 0.0 /100WBC 08/15/17 04:58 ESR 5 mm/Hr (0-20) 08/14/17 08:40 Sodium 135 mmol/L (135-145) 08/15/17 04:58 Potassium 3.7 mmol/L (3.5-5.0) 08/15/17 04:58 Chloride 106 mmol/L (101-111) 08/15/17 04:58 Carbon Dioxide 23 mmol/L (21-32) 08/15/17 04:58 Anion Gap 6.0 (6-13) 08/15/17 04:58 BUN 12 mg/dL (6-20) 08/15/17 04:58 Creatinine 0.6 mg/dL (0.4-1.0) 08/15/17 04:58 Estimated GFR (MDRD) 114 (>89) 08/15/17 04:58 Glucose 88 mg/dL (70-100) 08/15/17 04:58 Lactic Acid 0.8 mmol/L (0.5-2.2) 08/15/17 04:58 Calcium 8.4 mg/dL (8.5-10.3) L 08/15/17 04:58 Phosphorus 3.6 mg/dL (2.5-4.6) 08/15/17 04:58 Magnesium 1.9 mg/dL (1.7-2.8) 08/15/17 04:58 Total Bilirubin 0.6 mg/dL (0.2-1.0) 08/15/17 04:58 AST 19 IU/L (10-42) 08/15/17 04:58 ALT 15 IU/L (10-60) 08/15/17 04:58 Alkaline Phosphatase 33 IU/L (42-121) L 08/15/17 04:58 C-Reactive Protein < 1.0 mg/dL (0-1.0) 08/14/17 08:40 Total Protein 6.3 g/dL (6.7-8.2) L 08/15/17 04:58 Albumin 3.6 g/dL (3.2-5.5) 08/15/17 04:58 Globulin 2.7 g/dL (2.1-4.2) 08/15/17 04:58 Albumin/Globulin Ratio 1.3 (1.0-2.2) 08/15/17 04:58 Lipase 28 U/L (22-51) 08/14/17 08:40
[2017-08-16] MEDS: ACETAMINOPHEN 325 MG TABLET PO PRN ×5 (00:23→21:04)
[2017-08-16 06:12] LABS: BASOPHILS # (AUTO) 0.1 10^3/uL (0.0-0.1); BASOPHILS % (AUTO) 0.7 %; EOSINOPHILS # (AUTO) 0.1 10^3/uL (0.0-0.7); EOSINOPHILS % (AUTO) 1.3 %; HGB - HEMOGLOBIN 11.7 g/dL (12.0-16.0); LYMPHOCYTES # (AUTO) 2.2 10^3/uL (1.5-3.5); MEAN CORPUSCULAR HEMOGLOBIN 29.1 pg (27.0-31.0); MEAN CORPUSCULAR HGB CONC 33.7 g/dL (32.0-36.0); MEAN CORPUSCULAR VOLUME 86.3 fL (81.0-99.0); MEAN PLATELET VOLUME 7.4 fL (7.9-10.8); MONOCYTES # (AUTO) 0.5 10^3/uL (0.0-1.0); NEUTROPHILS # (AUTO) 5.8 10^3/uL (1.5-6.6); PLT - PLATELET COUNT 216 10^3/uL (130-450); RED BLOOD COUNT 4.02 10^6/uL (4.20-5.40); RED CELL DISTRIBUTION WIDTH 13.7 % (12.0-15.0); WHITE BLOOD COUNT 8.7 x10^3/uL (4.8-10.8)
[2017-08-16] MEDS: SODIUM CHLORIDE FLUSH 0.9% 10 ML SYRINGE IVP SCH ×3 (06:23→21:05)
[2017-08-16] MEDS: SODIUM CHLORIDE FLUSH 0.9% 10 ML SYRINGE IVP PRN (06:23)
[2017-08-16 06:28] LABS: ALBUMIN 3.6 g/dL (3.2-5.5); ALBUMIN/GLOBULIN RATIO 1.3 (1.0-2.2); BILIRUBIN,TOTAL 0.4 mg/dL (0.2-1.0); CALCIUM 8.5 mg/dL (8.5-10.3); CREATININE 0.8 mg/dL (0.4-1.0); MAGNESIUM 1.9 mg/dL (1.7-2.8); PHOSPHORUS 3.5 mg/dL (2.5-4.6); TOTAL PROTEIN 6.4 g/dL (6.7-8.2)
[2017-08-16] MEDS: DOXYCYCLINE INJ 100 MG in SODIUM CHLORIDE 0.9% MINIBAG 100 ML IV SCH ×2 (08:37→21:03)
[2017-08-16] MEDS: SULFAMETH/TRIMETH DS 800/160 MG TABLET PO SCH ×2 (08:40→21:04)
[2017-08-16] MEDS: SACCHAROMYCES BOULARDII 250 MG CAPSULE PO SCH ×2 (08:41→15:44)
[2017-08-16] MEDS: FAMOTIDINE 20 MG TABLET PO SCH (08:41)
[2017-08-16] MEDS: POLYETHYLENE GLYCOL 3350 17 GM PACKET PO SCH (08:41)
[2017-08-16] MEDS: ENOXAPARIN 40 MG/0.4 ML SYRINGE SUBQ SCH (08:45)
[2017-08-16] MEDS: predniSONE 20 MG TABLET PO SCH (09:44)
--- NOTE | 2017-08-16 14:49 | PROVIDER PROGRESS NOTE ---
Assessment/Plan - Problem List (1) Cellulitis of left toe Assessment/Plan: Patient has had persistent cellulitis of her left big toe. It has been going on for nearly a month now and she has been through multiple antibiotic regimens without resolution. The patient has grown multiple organisms on cultures of her left big toe drainage. She has grown organisms including Staphylococcus Lugdunensis, pantoea spp, coagulase negative staph, stenotorphomonas maltophilia , pantoea spp and kocuria kristinae. Most recently she was hospitalized and placed on IV Cipro with which she seemed to be having good response and was discharged home on p.o. Cipro. The patient returned to the emergency department because her cellulitis was worsening and she was having increased drainage from the left big toe. Yesterday patient was placed on vancomycin and ceftriaxone IV but seem to have an allergic reaction when she was placed on these medications. Therefore the vancomycin was stopped and she was placed back on IV ciprofloxacin. This morning the patient is having numbness in her bilateral lower extremities and feels as though she cannot lift her legs. The patient states that these symptoms were there over the last few days while she was on oral Cipro. We believe that this could be a side effect of the Cipro. This is day 2 of IV doxycycline and PO bactrim and patient is showing significant improvement with decreased drainage from the toe and improving erythema PICC line is in place Case management is working on setting up outpatient IV antibiotics but running into issues with authorization therefore patient may need to stay in the hospital for an additional day Patient will likely be able to be discharged tomorrow if we can get authorization for outpatient IV abx - Current Meds Current Meds: Current Medications Generic Name Dose Route Start Last Admin Trade Name Freq PRN Reason Stop Dose Admin Acetaminophen 650 mg 08/14/17 11:40 08/16/17 11:38 Tylenol PO 650 mg Q4HR PRN Administration Pain 1 to 4 Enoxaparin Sodium 40 mg 08/15/17 09:00 08/16/17 08:45 Lovenox SUBQ 40 mg DAILY NATHEN Administration Famotidine 20 mg 08/15/17 09:00 08/16/17 08:41 Pepcid PO 20 mg DAILY NATHEN Administration Doxycycline Hyclate 100 mg/ 100 mls @ 100 mls/hr 08/15/17 07:00 08/16/17 09: 40 Sodium Chloride IV Infused BID NATHEN Infusion Lorazepam 0.5 mg 08/15/17 06:35 08/15/17 07:13 Ativan PO 0.5 mg Q6H PRN Administration Anxiety Polyethylene Glycol 17 gm 08/15/17 09:00 08/16/17 08:41 Miralax PO 17 gm DAILY NATHEN Administration Saccharomyces Boulardii 500 mg 08/14/17 17:00 08/16/17 08:41 Florastor PO 500 mg BIDWM NATHEN Administration Sodium Chloride 10 ml 08/14/17 11:40 08/16/17 06:23 Normal Saline Flush 0.9% IVP 10 ml PRN PRN Administration NEEDED PER PROVIDER ORDERS Sodium Chloride 10 ml 08/14/17 14:00 08/16/17 08:40 Normal Saline Flush 0.9% IVP 40 ml Q8HR NATHEN Administration Trimethoprim/Sulfamethoxazole 1 tab 08/15/17 11:00 08/16/17 08:40 Bactrim Ds 800/160 PO 1 tab BID NATHEN Administration - Lab Result Lab results reviewed: Yes Fish Bone Diagrams: 08/16/17 05:40 08/16/17 05:40 - Diagnostic Imaging Results Diagnostic Imaging Results: Final report reviewed - Additional Planning Condition/Complexity: Improved Plan Discussed with:: Patient Time Spent: 31-60 minutes Subjective - Subjective Patient Reports: Feeling Better, Resting Comfortably (She denies anymore numbness or heaviness of her lower extremities.), Other (She denies any fevers or chills. SHe states there is less pain in her toe.) Objective Vital Signs: Vital Signs - 24 hr 08/15/17 08/16/17 08/16/17 15:24 00:18 06:30 Temperature 37.4 C 36.6 C Heart Rate [ 101 H 94 83 Brachial] Respiratory 18 18 Rate Blood Pressure 95/54 L 109/64 [Left Brachial artery] Blood Pressure 105/56 L [Right Brachial artery] O2 Saturation 100 99 08/16/17 07:22 Temperature 36.7 C Heart Rate [ 88 Brachial] Respiratory 18 Rate Blood Pressure 98/65 [Left Brachial artery] Blood Pressure [Right Brachial artery] O2 Saturation 100 Oxygen O2 Source Room air I&O (Last 24 Hrs): Intake and Output Totals x24h 08/14/17 08/15/17 08/16/17 23:59 23:59 23:59 Intake Total 1634 3380.000 1210 Balance 1634 3380.000 1210 General: Alert, Oriented x3, Cooperative, No acute distress HEENT: Atraumatic, PERRLA, EOMI, Mucous membr. moist/pink Neck: Supple, No JVD, No thyromegaly, +2 carotid pulse wo bruit, No LAD Lymphatic: no adenopathy Neuro: Alert, Non Focal, CN 2-12 Grossly Intact, Oriented Times 3 Cardiovascular: Regular rate, Normal S1, Normal S2, No murmurs Respiratory: Chest non-tender, No respiratory distress, Breath sounds nml Abdomen: Normal bowel sounds, Soft, No tenderness, No hepatospenomegaly Extremities: No clubbing, No cyanosis, No edema, Normal pulses, Other (Left big toe with opening in bed of nail appears to be dry and surrounding erythema is resolving) Comments/Notes: Erythema of the left toe has improved - Results Results: Laboratory Results WBC 8.7 x10^3/uL (4.8-10.8) 08/16/17 05:40 RBC 4.02 10^6/uL (4.20-5.40) L 08/16/17 05:40 Hgb 11.7 g/dL (12.0-16.0) L 08/16/17 05:40 Hct 34.7 % (37.0-47.0) L 08/16/17 05:40 MCV 86.3 fL (81.0-99.0) 08/16/17 05:40 MCH 29.1 pg (27.0-31.0) 08/16/17 05:40 MCHC 33.7 g/dL (32.0-36.0) 08/16/17 05:40 RDW 13.7 % (12.0-15.0) 08/16/17 05:40 Plt Count 216 10^3/uL (130-450) 08/16/17 05:40 MPV 7.4 fL (7.9-10.8) L 08/16/17 05:40 Neut # 5.8 10^3/uL (1.5-6.6) 08/16/17 05:40 Lymph # 2.2 10^3/uL (1.5-3.5) 08/16/17 05:40 Lea # 0.5 10^3/uL (0.0-1.0) 08/16/17 05:40 Eos # 0.1 10^3/uL (0.0-0.7) 08/16/17 05:40 Baso # 0.1 10^3/uL (0.0-0.1) 08/16/17 05:40 Absolute Nucleated RBC 0.00 x10^3/uL 08/16/17 05:40 Nucleated RBC % 0.0 /100WBC 08/16/17 05:40 ESR 5 mm/Hr (0-20) 08/14/17 08:40 Sodium 137 mmol/L (135-145) 08/16/17 05:40 Potassium 3.5 mmol/L (3.5-5.0) 08/16/17 05:40 Chloride 109 mmol/L (101-111) 08/16/17 05:40 Carbon Dioxide 22 mmol/L (21-32) 08/16/17 05:40 Anion Gap 6.0 (6-13) 08/16/17 05:40 BUN 11 mg/dL (6-20) 08/16/17 05:40 Creatinine 0.8 mg/dL (0.4-1.0) 08/16/17 05:40 Estimated GFR (MDRD) 82 (>89) L 08/16/17 05:40 Glucose 81 mg/dL (70-100) 08/16/17 05:40 Lactic Acid 0.8 mmol/L (0.5-2.2) 08/15/17 04:58 Calcium 8.5 mg/dL (8.5-10.3) 08/16/17 05:40 Phosphorus 3.5 mg/dL (2.5-4.6) 08/16/17 05:40 Magnesium 1.9 mg/dL (1.7-2.8) 08/16/17 05:40 Total Bilirubin 0.4 mg/dL (0.2-1.0) 08/16/17 05:40 AST 19 IU/L (10-42) 08/16/17 05:40 ALT 14 IU/L (10-60) 08/16/17 05:40 Alkaline Phosphatase 34 IU/L (42-121) L 08/16/17 05:40 C-Reactive Protein < 1.0 mg/dL (0-1.0) 08/14/17 08:40 Total Protein 6.4 g/dL (6.7-8.2) L 08/16/17 05:40 Albumin 3.6 g/dL (3.2-5.5) 08/16/17 05:40 Globulin 2.8 g/dL (2.1-4.2) 08/16/17 05:40 Albumin/Globulin Ratio 1.3 (1.0-2.2) 08/16/17 05:40 Lipase 28 U/L (22-51) 08/14/17 08:40
[2017-08-17 06:19] LABS: BASOPHILS # (AUTO) 0.1 10^3/uL (0.0-0.1); BASOPHILS % (AUTO) 1.1 %; EOSINOPHILS # (AUTO) 0.1 10^3/uL (0.0-0.7); EOSINOPHILS % (AUTO) 1.7 %; HGB - HEMOGLOBIN 11.5 g/dL (12.0-16.0); LYMPHOCYTES # (AUTO) 2.3 10^3/uL (1.5-3.5); LYMPHOCYTES % (AUTO) 32.2 %; MEAN CORPUSCULAR HEMOGLOBIN 29.1 pg (27.0-31.0); MEAN CORPUSCULAR HGB CONC 33.4 g/dL (32.0-36.0); MEAN CORPUSCULAR VOLUME 87.2 fL (81.0-99.0); MEAN PLATELET VOLUME 7.7 fL (7.9-10.8); MONOCYTES # (AUTO) 0.4 10^3/uL (0.0-1.0); MONOCYTES % (AUTO) 5.9 %; NEUTROPHILS # (AUTO) 4.2 10^3/uL (1.5-6.6); NEUTROPHILS % (AUTO) 59.1 %; PLT - PLATELET COUNT 212 10^3/uL (130-450); RED BLOOD COUNT 3.96 10^6/uL (4.20-5.40); RED CELL DISTRIBUTION WIDTH 14.1 % (12.0-15.0); WHITE BLOOD COUNT 7.2 x10^3/uL (4.8-10.8)
[2017-08-17] MEDS: ACETAMINOPHEN 325 MG TABLET PO PRN ×2 (06:23→12:28)
[2017-08-17] MEDS: SODIUM CHLORIDE FLUSH 0.9% 10 ML SYRINGE IVP SCH ×2 (06:23→14:18)
[2017-08-17 06:34] LABS: ALBUMIN 3.5 g/dL (3.2-5.5); ALBUMIN/GLOBULIN RATIO 1.3 (1.0-2.2); BILIRUBIN,TOTAL 0.5 mg/dL (0.2-1.0); CALCIUM 8.5 mg/dL (8.5-10.3); CREATININE 0.7 mg/dL (0.4-1.0); TOTAL PROTEIN 6.2 g/dL (6.7-8.2)
[2017-08-17] MEDS: FAMOTIDINE 20 MG TABLET PO SCH (08:38)
[2017-08-17] MEDS: SULFAMETH/TRIMETH DS 800/160 MG TABLET PO SCH (08:38)
[2017-08-17] MEDS: SACCHAROMYCES BOULARDII 250 MG CAPSULE PO SCH (08:38)
[2017-08-17] MEDS: ENOXAPARIN 40 MG/0.4 ML SYRINGE SUBQ SCH (08:38)
[2017-08-17] MEDS: DOXYCYCLINE INJ 100 MG in SODIUM CHLORIDE 0.9% MINIBAG 100 ML IV SCH (08:38)
[2017-08-17] MEDS: POLYETHYLENE GLYCOL 3350 17 GM PACKET PO SCH (08:39)
[2017-08-17] MEDS: SODIUM CHLORIDE FLUSH 0.9% 10 ML SYRINGE IVP PRN ×2 (08:39→08:40)
--- NOTE | 2017-08-17 15:32 | Discharge Plan ---
Discharge Plan Disposition: Home, Self Care Condition: Stable Prescriptions: oxyCODONE [Roxicodone] 5 mg PO Q4HR PRN #30 tablet PRN Reason: Pain 5 to 7 Doxycycline Hyclate [Doxy 100] 100 mg IV BID #20 vial Lactobacillus Acidophilus [Probiotic Acidophilus] 1.5 mg PO DAILY #30 capsule Sulfamethox/Trimeth 800/160 [Bactrim Ds] 1 tab PO BID #20 tablet Diet: Regular Activity Restrictions: Activity as Tolerated Shower Restrictions: Yes (keep toe clean and dry, do not soak) Driving Restrictions: Yes (no driving until toe noninfected) Weight Bearing: Full Weight Instruction Topics: Sulfamethoxazole Trimethoprim SMX-TMP tablets, Doxycycline tablets or capsules, Lactobacillus Oral formulations, Oxycodone tablets or capsules, PICC Line Flush Home Additional Instructions or Follow Up instructions: you have been admitted for IV anbiotics after a nail bed toe infection has been unsucessfully treated twice before. You will need 10 more days of treatment and will go home with a large bore IV line called a PICC. The infusion [facility] is meeting you to teach you how to keep your line clean. We are sending you home on a probiotic to help with bowel health while on antibiotics. If you develop fever, chills, a hot/red/swollen foot or other toes , please call your primary care provider for an appointment. If there is not one available the next day, come to the ER. No Smoking: If you smoke, Please STOP! Call for help. Follow-up with: RUPERT BOX [Primary Care Provider] -
[2017-08-17 15:53] VITALS: BP 110/61
--- NOTE | 2017-08-25 16:53 | DISCHARGE SUMMARY ---
DATE OF SERVICE: Physician: Debbie Geller MD DATE OF ADMISSION: 08/14/2017 DATE OF DISCHARGE: 08/17/2017 DATE OF ADMISSION: 08/14/2017 DATE OF DISCHARGE: 08/17/2017 DISCHARGE DIAGNOSIS: Cellulitis and soft tissue infection of the left great toe. DISCHARGE MEDICATIONS: 1. Doxycycline 100 mg IV b.i.d. for 10 more days. 2. Bactrim double strength 1 p.o. b.i.d. for 10 more days. 3. Probiotic Acidophilus daily. 4. Oxycodone 5 mg q. 4 hours p.r.n. pain, #30. PRINCIPAL PROCEDURE: PICC line placement. HOSPITAL COURSE: The patient is a 36-year-old female who had onychomycosis of the toenails. She had treatment that failed in the outpatient setting, which resulted in podiatry procedure of removal of the nails. Subsequent to that, she developed a soft tissue infection. She has been treated with numerous antibiotics in the outpatient setting and was eventually transitioned to the inpatient setting. Organisms that grew out of her toe in the last month have been Staphylococcus lugdunensis, pantoea species, coag negative staph, stenotorphomonas maltophilia, and kocuria kristinae, [TIME: 01:59]positive in her cultures. She was hospitalized with IV Cipro and had good response and discharged home on p.o. Cipro. She returned to the emergency department because of increased pain and drainage of the left great toe. On admission, the patient was afebrile with a normal white cell count. She is a young white female with no other medical problems. She was placed on IV vancomycin and ceftriaxone, but seemed to have allergic reaction when she was placed on these medicines. Thereby, vancomycin was stopped. She was placed on IV Cipro. She then began having numbness in her bilateral lower extremity and felt that she could not lift her legs and she felt like this was due to Cipro. As such, she was changed from Cipro to IV doxycycline and p.o. Bactrim. She is tolerating that well. A PICC line was placed. The patient was made ready for discharge to home with IV antibiotics. She remained afebrile at less than 37 through her entire stay. White cell count remained stable at 5.7-6.1. Sedimentation rate was 5. The only finding on physical examination is the left great toe having a black eschar over the nail bed where the nail used to be. Occasionally, draining fluid. The surrounding toes slightly warm and slightly pink, but no other involvement of the metatarsal area, or the second toe or the rest of the foot. She is discharged in stable condition to followup with orthopedics and her primary care provider. Temperature is 36.7, pulse 92, blood pressure is 110/61, respirations 18, 100% on room air. She looks younger than stated age and has completely negative exam with clear lungs. Regular rate and rhythm. A benign abdominal exam and no ataxia and has complete and full strength to be able to go from a supine to sitting position and a supine to standing and walking position. She does get pain when her foot is dangling or down and gets dropping in the toe. This patient will be sent home with oxycodone as well as her IV and oral antibiotics. She is to keep the toe clean and dry. Not to soak it. Followup with her primary care provider. Greater than 30 minutes was spent in coordinating discharge. TD: 08/25/2017 17:52
== END 2017-08-17 18:18 | disposition home or self-care (01) | DRG 603 ==
LOC: ED 07:10 → MS3 11:40
PROVIDERS: ADMIT Internal Medicine; ATTEND Specialist
PROC: 02HV33Z Insertion of Infusion Device into Superior Vena Cava, Percutaneous Approach (ICD-10-PCS; principal; 2017-08-15)
DX: L03.032 Cellulitis of left toe (principal); B95.7 Other staphylococcus as the cause of diseases classified elsewhere; B96.89 Other specified bacterial agents as the cause of diseases classified elsewhere; R20.0 Anesthesia of skin; T36.8X5A Adverse effect of other systemic antibiotics, initial encounter; T36.1X5A Adverse effect of cephalosporins and other beta-lactam antibiotics, initial encounter; Y92.239 Unspecified place in hospital as the place of occurrence of the external cause; T14.90XS Injury, unspecified, sequela
CPT/HCPCS: 36415; 71045; 80053; 83605; 83690; 83735; 84100; 85025; 85651; 86140; 96365; 99283; 99284

== ENCOUNTER 2018-02-24 12:58 | Outpatient (CLI) | payer OTHER ==
--- NOTE | 2018-02-24 13:48 | Mammography Report ---
Procedure Date: 02/24/2018 Accession Number: [id number] / [id number] Procedure: [facility] - Diagnostic Dig Bilat CPT Code: FULL RESULT: EXAM: Diagnostic Dig Bilat DATE: 02/24/2018 1:35 PM CLINICAL HISTORY: 37-year-old female with history of mass detected by ultrasound on an outside institution. She is now status post ultrasound-guided biopsy in the right breast. She presents today for follow-up mammogram and baseline bilaterally. TECHNIQUE: Bilateral CC, MLO, exaggerated CC views as well as a right ML view were obtained. COMPARISON: None FINDINGS: The breasts demonstrate heterogeneously dense fibroglandular parenchyma bilaterally. A biopsy clip is seen in the right breast. No suspicious masses or calcifications are seen in either breast. IMPRESSION: Benign findings RECOMMENDATION: Recommend routine annual Screening mammography be initiated at the appropriate age based on the patient's risk factors unless otherwise clinically indicated. BIRADS CATEGORY 2: Benign findings STANDARD QUALIFYING STATEMENTS: 1. This examination was reviewed with the aid of Computer-Aided Detection (CAD). 2. A negative or benign imaging report should not delay biopsy if clinically suspicious findings are present. Consider surgical consultation if warrented. More than 5% of cancers are not identified by imaging. 3. Dense breasts may obscure an underlying neoplasm.
== END 2018-02-24 12:59 | disposition home or self-care (01) ==
LOC: DI 12:58
PROVIDERS: ATTEND Family Medicine
DX: Z80.3 Family history of malignant neoplasm of breast (principal)
CPT/HCPCS: 77066